=== PATIENT | male | born 1950 | race Two or more races ===

== ENCOUNTER 2018-10-07 07:50 | Day surgery (SDC) | payer OTHER ==
[2018-10-07] VITALS (8 sets, daily range): BP systolic 105–164; BP diastolic 70–88
[~2018-10-07] VITALS: Ht 167.6 cm; Wt 76.2 kg
[~2018-10-07 07:50] MED LIST: ATORVASTATIN CA40 MG ORAL; Atropine Sulfate 0.4mg/ml inj IVP PRN; DiphenhydrAMINE 50mg/ml Inj IVP PRN; Midazolam 2mg/2ml Inj IVP PRN; fentaNYL 100 mcg/2 mL IV PRN
--- NOTE | 2018-10-07 08:02 | Anethesia Preoperative Eval ---
Anesthesia Pre-op PMH/ROS General Date of Evaluation: Oct 07, 2018 Time of Evaluation: 08:02 Anesthesiologist: angi ASA Score: ASA 2 Mallampati Score Class I : Soft palate, uvula, fauces, pillars visible Class II: Soft palate, uvula, fauces visible Class III: Soft palate, base of uvula visible Class IV: Only hard plate visible Mallampati Classification: Class II Surgeon: james Diagnosis: abdominal pain, gerd Surgical Procedure: egd Anesthesia History: none Social History: smoking - nonsmoker Family History: no anesthesia problems Allergies: Coded Allergies: No Known Allergies (Unverified , 10/06/18) Medications: see eMAR Patient NPO?: Yes Past Medical History Cardiovascular: Reports: other - hypercholesterolemia Anesthesia Pre-op Phys. Exam Physician Exam Constitutional: NAD Neurologic: CN 2-12 intact Cardiovascular: RRR Respiratory: CTA Gastrointestinal: S/NT/ND Airway Exam Mallampati Score: Class II MO: limited Neck: flexible TMD: 2fb ROM: limited Anesthesia Pre-op A/P Risk Assessment & Plan Assessment: asa2 Plan: mac Status Change Before Surgery: No Pre-Antibiotics Drug: Marilyn Xavier MD Oct 07, 2018 08:02
--- NOTE | 2018-10-07 08:18 | NUR ---
IV WAS INSERTED BY GINO REYES R.N. AT 0810 AM
--- NOTE | 2018-10-07 08:57 | Short Stay Surgery H&P ---
History of Present Illness History of Present Illness Chief Complaint Patient complains of epigastric pains/GERDs HPI Reji Slater is a 67 year old male who was admitted on for Lumbar Right Leg, Gerds, Abdominal Pain, Gerd Patient History Allergies: Coded Allergies: No Known Allergies (Unverified , 10/06/18) PAST MEDICAL HISTORY: (1) Hyperlipidemia Medication History Scheduled Atorvastatin Calcium* (Atorvastatin Calcium*), 40 MG ORAL BEDTIME, (Reported) Review of Systems Cardiovascular: Reports: no symptoms Respiratory: Reports: no symptoms Skeletal: Reports: trauma Gastrointestinal: Reports: gastro esophageal reflux disease Genitourinary: Reports: no symptoms Neurologic: Reports: no symptoms Endocrine: Reports: no symptoms Hematologic: Reports: no symptoms Physical Exam Vital Signs Last Vital Signs Date Time Temp Pulse Resp B/P (MAP) Pulse Ox O2 Delivery O2 Flow Rate FiO2 10/07/18 08:13 Room Air 10/07/18 08:10 97.6 64 18 164/88 98 Skin: normal HENT: normal Heart: normal Lungs: normal Abdomen: abnormal Extremities: normal Genitourinary: normal Plan Plan of Care Upper GI. endoscopy with biopsy. Preop Interventions None. Summary of Findings See the reports Attestation Are the patient's medical conditions optimized for surgery? Attestation Response: yes Rigoberto Bravo MD Oct 07, 2018 08:57
--- NOTE | 2018-10-07 08:57 | Pre-Procedure Note/Attestation ---
Pre-Procedure Note/Attestation Complete Prior to Procedure Planned Procedure: left Procedure Narrative: Endoscopic examination of the upper GI. tract with obtaining biopsy. Indications for Procedure Pre-Operative Diagnosis: R/O Gastritis/Peptic ulcer. Attestation I attest that I discussed the nature of the procedure; its benefits; risks and complications; and alternatives (and the risks and benefits of such alternatives ), prior to the procedure, with the patient (or the patient's legal business representative). I attest that, if there was a reasonable possibility of needing a blood transfusion, the patient (or the patient's legal business representative) was given the [place] Department [employer] standardized written summary, pursuant to the Eric Yantis Blood Safety Act ([place] Health and Safety Code # 1645, as amended). I attest that I re-evaluated the patient just prior to the surgery and that there has been no change in the patient's H&P, except as documented below: Rigoberto Bravo MD Oct 07, 2018 08:57
[2018-10-07] MEDS ORDERED: Lidocaine 1% MPF 10mg/ml 5ml ONE (09:00)
[2018-10-07] MEDS ORDERED: Propofol 200mg/20ml IV ONE (09:00)
[2018-10-07] MEDS ORDERED: LR 1000ml ONE (09:00)
--- NOTE | 2018-10-07 09:18 | Endoscopy Procedure Note ---
Endoscopy Procedure Note General Indication for Procedure: Abdominalpains/GERDs Procedures Performed: EGD - Mild/moderate gastritis, biopsies were obtained from prepyloric and gastric body areas. Specimen: yes Pt Tolerated Procedure Well: Yes Estimated Blood Loss: none Anesthesia Anesthesiologist: Dr. Luis Anesthesia: moderate sedation Medications Medication Given: see anesthesia record Inserted Devices Implant(s) used?: No Quality Quality of Bowel Preparation: Excellent Was there any complications?: No GI Core Measures 50 yrs or older w/o bx or poly: Not Applicable 10yrs. F/U not recommended: Not Applicable If not recommended, why?: Med reason:<3 yrs.: System Reason:<3 yrs.: Rigoberto Bravo MD Oct 07, 2018 09:18
--- NOTE | 2018-10-07 09:19 | Discharge Instructions ---
Discharge Instructions Discharge Instructions Follow up with: Visit the doctor in his office after 2 weeks/call first For Congestive Heart Failure Reminder Report to your physician any weight gain of 5 pounds or more in one week. Rigoberto Bravo MD Oct 07, 2018 09:19
--- NOTE | 2018-10-07 09:49 | Immediate Post-Op Evaluation ---
Immediate Post-Op Evalulation Immediate Post-Op Evalulation Procedure: egd/bx Date of Evaluation: Oct 07, 2018 Time of Evaluation: 09:39 IV Fluids: 250ml lr Blood Products: none Estimated Blood Loss: negligible Blood Pressure Systolic: 109 Blood Pressure Diastolic: 72 Pulse Rate: 62 Respiratory Rate: 18 O2 Sat by Pulse Oximetry: 100 Temperature (Fahrenheit): 97.8 Pain Score (1-10): 0 Nausea: No Vomiting: No Complications none Patient Status: awake, reacts, patent Hydration Status: adequate Drug: Marilyn Xavier MD Oct 07, 2018 09:48
--- NOTE | 2018-10-07 09:49 | 48 Hour Post Anesthesia Eval ---
Post Anesthesia Evaluation Procedure: egd/bx Date of Evaluation: Oct 07, 2018 Time of Evaluation: 09:41 Blood Pressure Systolic: 109 0: 75 Pulse Rate: 67 Respiratory Rate: 18 Temperature (Fahrenheit): 97.8 O2 Sat by Pulse Oximetry: 100 Airway: patent Nausea: No Vomiting: No Pain Intensity: 0 Hydration Status: adequate Cardiopulmonary Status: stable Mental Status/LOC: patient returned to baseline Post-Anesthesia Complications: none Follow-up care needed: N/A Marilyn Luis MD Oct 07, 2018 09:49
--- NOTE | 2018-10-07 16:01 | Pre-op HX & Phy Repo 2 SIG ---
DATE OF ADMISSION: 10/07/2018 NOTATION: \ZU\REGARDING PREOPERATIVE EXAMINATION BILLING This patient had to be examined before undergoing the procedure of endoscopy for which he had been scheduled. Therefore, this report is entitled for compensation accordingly as claimed. HISTORY OF PRESENT ILLNESS: The patient is a 67-year-old gentleman who is being seen prior to undergoing the procedure of upper GI endoscopy for further evaluation of his gastrointestinal conditions that he has suffered and claimed subsequent to his work injury. The patient at this time is being examined as he is still complaining of experiencing pain over the upper part of his abdomen radiating towards his chest, associated with moderate heartburn, which is exacerbated by consumption of certain foods mostly spicy ones. 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 He was subsequently started on multiple medications including strong analgesics along with ibuprofen, NSAIDs. At this time, he tells me that he feels these pains on a regular basis and daily basis that he has been experiencing and he told me when I saw him two to three months ago in the office. He tells me that he does not have any nausea, vomiting, any evidence of GI bleeding such as hematemesis, melena, or hematochezia. He does not have any changes in his bowel movements such as diarrhea or constipation. Again, as I mentioned gastritis stopped taking ibuprofen, but he states that he occasionally takes it and he is presently taking omeprazole along with tramadol to stop the pain that he is suffering from. He denies having any other medical conditions in terms of gastroenterological problems before being injured at job site and this problem started right after he was treated with medications and life aftermath. He has been diagnosed to have acute lumbosacral strain and lumbar disc disease as a part of his work related injuries. PAST MEDICAL HISTORY: The applicant basically denies having any medical condition except high lipids for which he is taking medications. PAST SURGICAL HISTORY: Nonsignificant. He denies having had any history of surgery in the past. ALLERGIES: Nonsignificant. MEDICATIONS: List of present medication is Lipitor. FAMILY HISTORY: Nonsignificant. There is no family diathesis. REVIEW OF SYSTEMS: Basically history of present illness. He denies having any cardiac conditions, chest pain, angina, palpitation, etc. No urological problems. PHYSICAL EXAMINATION: GENERAL: Reveals alert and oriented gentleman, who does not seem to be in any acute distress. VITAL SIGNS: Shows blood pressure 164/88, pulse rate 64, oxygen saturation 98%, and temperature 98.6. HEENT: Normocephalic. Pupils are equal in size and reactive to light and accommodation. No visible jaundice. NECK: Supple. No JVD or thyromegaly. CHEST: Clear to auscultation and percussion. No rales or rhonchi. HEART: S1, S2 normal. Regular rhythm. No gallops or murmur. ABDOMEN: Soft, but there is minimal tenderness over the upper part of the abdomen at this time, which is nonsignificant. There is no hepatosplenomegaly. No palpable mass. EXTREMITIES: Within normal limits. No pretibial edema, cyanosis, or clubbing. NEUROLOGIC: Nonsignificant. PREOPERATIVE IMPRESSION: 1. Abdominal pain, epigastric pain of uncertain etiology, rule out NSAID-induced gastropathy, rule out peptic ulcer disease caused by side effects of NSAID medications, rule out gastritis. 2. Hyperlipidemia. 3. History of bodily injury work related. RECOMMENDATIONS: The applicant at this time seems to be stable as I examined him today to undergo the procedure of upper GI endoscopy. He agrees and understands the risks and benefits and will sign the consent. Said Blaise Bravo DR: CHRISTINE JOB#: [id number] CC:
--- NOTE | 2018-10-07 16:16 | Operative Note - Dictated ---
DATE OF OPERATION: 10/07/2018 SURGEON: Rigoberto Bravo M.D. PROCEDURE: Esophagogastroduodenoscopy with biopsy. PREOPERATIVE DIAGNOSIS: Abdominal pain, epigastric pain, rule out NSAID-induced gastropathy, peptic ulcer disease. POSTOPERATIVE DIAGNOSIS: Mild/moderate generalized gastritis. Biopsies were taken from gastric body and prepyloric area. MEDICATION USED: Per Dr. Hill. INSTRUMENT: GIF Olympus upper GI video endoscope. DESCRIPTION OF PROCEDURE: The patient after arriving in the endoscopy unit, was told about risks and benefits of the procedure, which he accepted and signed informed consent. He was then put on the left lateral decubitus position after adequate IV sedation. The scope was gently passed through the cricopharyngeal area, was lodged into the upper esophagus and gradually advanced towards gastroesophageal junction. The entire length of esophagus looked normal. At this time, GE junction was examined, which was also normal likewise, and there was no Red's or hiatal hernia. Scope at this time was entered into the stomach, gastric cavity was distended with insufflation of air and gradually the areas of the fundus and the body and the antrum were examined, which revealed evidence of mild/moderate gastritis presenting with congestion of the gastric body and there was somewhat enlarged gastric fold over the posterior wall. There was no polyps or tumor, however. At this time, one random biopsy from gastric body and the other one from the pre-pyloric area was obtained and subsequently the scope was retroflexed and the area of the gastroesophageal junction was examined, which again revealed evidence of [id number] inflammatory process in this area. Finally, the scope was gradually advanced towards the antrum and from there into pylorus. First and second portions of duodenum were examined, which looked completely normal. At this time, the scope was pulled out and the procedure was terminated. The patient tolerated the procedure well and left the endoscopy room in a good condition. Rigoberto Bravo M.D. DR: CHRISTINE JOB#: [id number] CC:
== END 2018-10-07 10:35 | disposition home or self-care (01) ==
LOC: SUR 07:50
DX: K29.70 Gastritis, unspecified, without bleeding (principal); E78.5 Hyperlipidemia, unspecified; K21.9 Gastro-esophageal reflux disease without esophagitis
CPT/HCPCS: 43239; J2704; 94003; 94150